=== PATIENT | female | born 1950 | race Caucasian/White ===

== ENCOUNTER 2016-12-07 12:41 | Emergency (ER) | payer OTHER ==
[2016-12-07 12:56] VITALS: RESP 18
[2016-12-07] MEDS ORDERED: CARVEDILOL 25 MG TAB PO ONE (13:47)
--- NOTE | 2016-12-07 14:27 | EDPHY ---
H & P Stated Complaint: htn/not taaking meds as ordered/is running out Time Seen by Provider: 12/07/16 13:34 HPI/ROS: CHIEF COMPLAINT: Needs medication for hypertension HISTORY OF PRESENT ILLNESS: The patient presents to the emergency department after she has ran out of medication for her high blood pressure for the past month. The patient has been on a number of agents including amlodipine, carvedilol, clonidine and hydralazine. The patient is not had any of these medications for 1 month. The patient is new to the area. The patient reportedly was seen in the emergency department several months ago for vaginal bleeding which resolved. REVIEW OF SYSTEMS: A comprehensive 10 point review of systems is otherwise negative aside from elements mentioned in the history of present illness. - Personal History Current Tetanus/Diphtheria Vaccine: Unsure - Medical/Surgical History Hx Asthma: No Hx Chronic Respiratory Disease: No Hx Diabetes: Yes Hx Cardiac Disease: No Hx Renal Disease: No Hx Cirrhosis: No Hx Alcoholism: No Hx HIV/AIDS: No Hx Splenectomy or Spleen Trauma: No Other PMH: CVA/HTN/DIABETES/ENDOCARDITIS/DUODENAL ULCERS - Social History Smoking Status: Never smoked Constitutional: Initial Vital Signs Temperature (C) 36.3 C 12/07/16 12:54 Heart Rate 94 12/07/16 12:54 Respiratory Rate 18 12/07/16 12:54 Blood Pressure 211/140 H 12/07/16 12:54 O2 Sat (%) 95 12/07/16 12:54 O2 Delivery Mode Room Air Allergies/Adverse Reactions: gabapentin Allergy (Verified 12/07/16 12:53) lanolin Allergy (Verified 12/07/16 12:53) oxycodone HCl [From OxyContin] Allergy (Verified 12/07/16 12:53) Home Medications: Medication Instructions Recorded AMITRIPTYLINE HCL 09/23/16 Amlodipine Besylate 09/23/16 Atorvastatin Calcium 09/23/16 Carvedilol 09/23/16 Clonidine 09/23/16 FERROUS FUMARATE 09/23/16 Furosemide 09/23/16 Levothyroxine 09/23/16 Metformin HCl 09/23/16 Oxybutynin Chloride 09/23/16 Potassium 09/23/16 Protonix 09/23/16 buPROPion 09/23/16 hydrALAZINE 09/23/16 Amlodipine Besylate 10 mg PO DAILY #30 tablet 12/07/16 Carvedilol [Coreg (*)] 25 mg PO BIDMEAL #60 tab 12/07/16 Furosemide [Lasix 20 MG (*)] 20 mg PO DAILY #30 tab 12/07/16 Hydralazine HCl 100 mg PO DAILY #30 tablet 12/07/16 Levothyroxine [Synthroid 100 mcg 100 mcg PO DAILY #30 tab 12/07/16 (*)] Metformin HCl [Metformin 1000 mg] 1,000 mg PO BID #60 tablet 12/07/16 Medical Decision Making ED Course/Re-evaluation: The patient presents to the ED with a markedly elevated blood pressure without any clinical evidence of end-organ dysfunction. She specifically has a normal neurologic exam, no complaints of chest pain or shortness of breath. Patient's blood pressure was 250/130 upon arrival. The patient did receive an oral dose of amlodipine and carvedilol. Patient was re-evaluated by myself at 3:15 p.m.. Blood pressure is currently 183/[address] Maurice Alvarez who is on-call for outpatient unassigned medicine. I reviewed the patient's case. He is happy to see her in the office tomorrow for a blood pressure recheck in to review all of her outpatient medications. The patient has been provided prescriptions for amlodipine, carvedilol, metformin, hydralazine, lasix and levothyroxine. Patient is comfortable being discharged home at this stage of the game. She will return to the ED for any chest pain, shortness of breath, numbness, weakness or other acute complaints. Differential Diagnosis: Differential diagnosis considered includes hypertensive emergency, hypertensive urgency, metabolic abnormality, acute renal failure, medication side effect, stroke, TIA - Data Points Laboratory Results: Laboratory Results 12/07/16 14:35 12/07/16 14:35 12/07/16 12/07/16 14:35 14:35 WBC 8.27 10^3/uL 10^3/uL (3.80-9.50) RBC 4.71 10^6/uL 10^6/uL (4.18-5.33) Hgb 13.9 g/dL g/dL (12.6-16.3) Hct 40.7 % % (38.0-47.0) MCV 86.4 fL fL (81.5-99.8) MCH 29.5 pg pg (27.9-34.1) MCHC 34.2 g/dL g/dL (32.4-36.7) RDW 13.0 % % (11.5-15.2) Plt Count 305 10^3/uL 10^3/uL (150-400) MPV 9.9 fL fL (8.7-11.7) Neut % (Auto) 60.6 % % (39.3-74.2) Lymph % (Auto) 30.2 % % (15.0-45.0) [place] % (Auto) 6.2 % % (4.5-13.0) Eos % (Auto) 2.2 % % (0.6-7.6) Baso % (Auto) 0.6 % % (0.3-1.7) Nucleat RBC Rel Count 0.0 % % (0.0-0.2) Absolute Neuts (auto) 5.01 10^3/uL 10^3/uL (1.70-6.50) Absolute Lymphs (auto) 2.50 10^3/uL 10^3/uL (1.00-3.00) Absolute Monos (auto) 0.51 10^3/uL 10^3/uL (0.30-0.80) Absolute Eos (auto) 0.18 10^3/uL 10^3/uL (0.03-0.40) Absolute Basos (auto) 0.05 10^3/uL 10^3/uL (0.02-0.10) Absolute Nucleated RBC 0.00 10^3/uL 10^3/uL (0-0.01) Immature Gran % 0.2 % % (0.0-1.1) Immature Gran # 0.02 10^3/uL 10^3/uL (0.00-0.10) Sodium 142 mEq/L mEq/L (134-144) Potassium 3.6 mEq/L mEq/L (3.5-5.2) Chloride 109 mEq/L mEq/L (97-110) Carbon Dioxide 23 mEq/l mEq/l (22-31) Anion Gap 10 mEq/L mEq/L (8-16) BUN 24 mg/dL H mg/dL (7-23) Creatinine 1.6 mg/dL H mg/dL (0.6-1.0) Estimated GFR 32 Glucose 101 mg/dL H mg/dL (70-100) Calcium 9.7 mg/dL mg/dL (8.5-10.4) Medications Given: Discontinued Medications Amlodipine Besylate (Norvasc) 10 mg PO EDNOW ONE Stop: 12/07/16 13:48 Last Admin: 12/07/16 14:15 Dose: 10 mg Carvedilol (Coreg) 25 mg PO EDNOW ONE Stop: 12/07/16 13:48 Last Admin: 12/07/16 14:15 Dose: 25 mg Departure - Departure Disposition: Home, Routine, Self-Care Clinical Impression: Hypertension Condition: Good Instructions: Hypertension (ED) Additional Instructions: 1. Please take medications as prescribed. 2. Please follow up with Dr. Maurice Alvarez tomorrow for a new patient appointment. Please contact his office today to schedule that appointment. Referrals: Maurice Alvarez MD [Medical Doctor] - As per Instructions Prescriptions: Amlodipine Besylate 10 mg PO DAILY #30 tablet Carvedilol [Coreg (*)] 25 mg PO BIDMEAL #60 tab Furosemide [Lasix 20 MG (*)] 20 mg PO DAILY #30 tab Hydralazine HCl 100 mg PO DAILY #30 tablet Levothyroxine [Synthroid 100 mcg (*)] 100 mcg PO DAILY #30 tab Metformin HCl [Metformin 1000 mg] 1,000 mg PO BID #60 tablet
[2016-12-07 14:50] LABS: % IMMATURE GRANULYOCYTES 0.2 % (0.0-1.1); ABSOLUTE IMMATURE GRANULOCYTES 0.02 10^3/uL (0.00-0.10); ADD DIFF? NO; ADD MORPH? NO; ADD SCAN? NO; ATYPICAL LYMPHOCYTE FLAG 0 (0-99); FRAGMENT RBC FLAG 0 (0-99); HEMATOCRIT 40.7 % (38.0-47.0); HEMOGLOBIN 13.9 g/dL (12.6-16.3); LEFT SHIFT FLG 0 (0-99); LIPEMIA HEMOLYSIS FLAG 90 (0-99); MEAN CELL HEMOGLOBIN 29.5 pg (27.9-34.1); MEAN CELL HEMOGLOBIN CONCENTR. 34.2 g/dL (32.4-36.7); MEAN CELL VOLUME 86.4 fL (81.5-99.8); MEAN PLATELET VOLUME 9.9 fL (8.7-11.7); PLATELET CLUMPS FLAG 0 (0-99); PLATELET COUNT 305 10^3/uL (150-400); RED BLOOD CELL COUNT 4.71 10^6/uL (4.18-5.33)
[2016-12-07 15:05] LABS: ANION GAP 10 mEq/L (8-16); CALCIUM 9.7 mg/dL (8.5-10.4); CARBON DIOXIDE 23 mEq/l (22-31); CHLORIDE 109 mEq/L (97-110); CREATININE 1.6 mg/dL (0.6-1.0); GLOMERULAR FILTRATION RATE 32; GLUCOSE 101 mg/dL (70-100); POTASSIUM 3.6 mEq/L (3.5-5.2); SODIUM 142 mEq/L (134-144)
[2016-12-07 15:59] VITALS: BP 176/117; PULSE 78; TEMP 97.5; O2SAT 95
== END 2016-12-07 16:03 | disposition home or self-care (01) ==
DX: I10 Essential (primary) hypertension (principal); E11.9 Type 2 diabetes mellitus without complications

== ENCOUNTER 2016-12-27 13:35 | Emergency (ER) | payer OTHER ==
[2016-12-27 13:40] VITALS: BP 181/91; PULSE 66; RESP 18; TEMP 98.1; O2SAT 94
--- NOTE | 2016-12-27 14:22 | EDPHY ---
H & P Stated Complaint: L 1st toe nail falling off, bleeding, no trauma Time Seen by Provider: 12/27/16 14:17 HPI/ROS: CHIEF COMPLAINT: Toenail falling off HISTORY OF PRESENT ILLNESS: Patient is a 66-year-old diabetic female who comes to the emergency department because she knows that her left great toenail was falling off. She knows this morning. It is avulsed from the nail bed but is still in the base. There is a small amount of dry blood. No visible infection. No significant pain. REVIEW OF SYSTEMS: Constitutional: denies: chills, fever, recent illness, recent injury EENTM: denies: blurred vision, double vision, nose congestion Respiratory: denies: cough, shortness of breath Cardiac: denies: chest pain, irregular heart rate, lightheadedness, palpitations Gastrointestinal/Abdominal: denies: abdominal pain, diarrhea, nausea, vomiting, blood streaked stools Genitourinary: denies: dysuria, frequency, hematuria, pain Musculoskeletal: denies: joint pain, muscle pain Skin: denies: lesions, rash, jaundice, bruising Neurological: denies: headache, numbness, paresthesia, tingling, dizziness, weakness Hematologic/Lymphatic: denies: blood clots, easy bleeding, easy bruising Immunologic/allergic: denies: HIV/AIDS, transplant EXAM: GENERAL: Well-appearing, well-nourished and in no acute distress. HEAD: Atraumatic, normocephalic. EYES: Pupils equal round and reactive to light, extraocular movements intact, sclera anicteric, conjunctiva are normal. ENT: TMs normal, nares patent, oropharynx clear without exudates. Moist mucous membranes. NECK: Normal range of motion, supple without lymphadenopathy or JVD. LUNGS: Breath sounds clear to auscultation bilaterally and equal. No wheezes rales or rhonchi. HEART: Regular rate and rhythm without murmurs, rubs or gallops. ABDOMEN: Soft, nontender, normoactive bowel sounds. No guarding, no rebound. No masses appreciated. BACK: No CVA tenderness, no spinal tenderness, step-offs or deformities EXTREMITIES: Left great toenail partially avulsed. Loose from the nail bed but still intact at the base. Normal range of motion, no pitting or edema. No clubbing or cyanosis. NEUROLOGICAL: Cranial nerves II through XII grossly intact. Normal speech, normal gait. 5/5 strength, normal movement in all extremities, normal sensation PSYCH: Normal mood, normal affect. SKIN: Warm, dry, normal turgor, no visible rashes or lesions. Source: Patient Exam Limitations: No limitations - Personal History Current Tetanus/Diphtheria Vaccine: Yes Current Tetanus Diphtheria and Acellular Pertussis (TDAP): Yes - Medical/Surgical History Hx Asthma: No Hx Chronic Respiratory Disease: No Hx Diabetes: Yes Hx Cardiac Disease: No Hx Renal Disease: No Hx Cirrhosis: No Hx Alcoholism: No Hx HIV/AIDS: No Hx Splenectomy or Spleen Trauma: No Other PMH: CVA/HTN/NIDDM/ENDOCARDITIS/DUODENAL ULCERS/hx kidney failure/colon ca - Family History Significant Family History: Hypertension - Social History Smoking Status: Never smoked Alcohol Use: Sober Drug Use: None Constitutional: Initial Vital Signs Temperature (C) 36.7 C 12/27/16 13:37 Heart Rate 66 12/27/16 13:37 Respiratory Rate 18 12/27/16 13:37 Blood Pressure 181/91 H 12/27/16 13:37 O2 Sat (%) 94 12/27/16 13:37 O2 Delivery Mode Room Air Allergies/Adverse Reactions: gabapentin Allergy (Verified 12/07/16 12:53) lanolin Allergy (Verified 12/07/16 12:53) oxycodone HCl [From OxyContin] Allergy (Verified 12/07/16 12:53) Home Medications: Medication Instructions Recorded AMITRIPTYLINE HCL 09/23/16 Amlodipine Besylate 09/23/16 Atorvastatin Calcium 09/23/16 Carvedilol 09/23/16 Clonidine 09/23/16 FERROUS FUMARATE 09/23/16 Furosemide 09/23/16 Levothyroxine 09/23/16 Metformin HCl 09/23/16 Oxybutynin Chloride 09/23/16 Potassium 09/23/16 Protonix 09/23/16 buPROPion 09/23/16 hydrALAZINE 09/23/16 Amlodipine Besylate 10 mg PO DAILY #30 tablet 12/07/16 Carvedilol [Coreg (*)] 25 mg PO BIDMEAL #60 tab 12/07/16 Furosemide [Lasix 20 MG (*)] 20 mg PO DAILY #30 tab 12/07/16 Hydralazine HCl 100 mg PO DAILY #30 tablet 12/07/16 Levothyroxine [Synthroid 100 mcg 100 mcg PO DAILY #30 tab 12/07/16 (*)] Metformin HCl [Metformin 1000 mg] 1,000 mg PO BID #60 tablet 12/07/16 Medical Decision Making ED Course/Re-evaluation: Patient has partially avulsed toenail was wrapped. No evidence of fracture or laceration. No evidence of infection. No evidence of foreign body. I advised her that it would gradually fall off over the next few weeks and then regenerate. She will follow up with a nursing associate as discussed. Differential Diagnosis: Partial list of the Differential diagnosis considered include but were not limited to; toenail avulsion, infection, crush injury and although unlikely based on the history and physical exam, I also considered laceration, foreign body. I discussed these differential diagnoses and the plan with the patient as well as the usual and expected course. The patient understands that the diagnosis is provisional and that in medicine we are not always correct and that further workup is often warranted. Usual and customary warnings were given. All of the patient's questions were answered. The patient was instructed to return to the emergency department should the symptoms at all worsen or return, otherwise to followup with the physician as we discussed. Departure - Departure Disposition: Home, Routine, Self-Care Clinical Impression: Avulsed toenail Qualifiers: Encounter type: initial encounter Qualified Code(s): S91.209A - Unspecified open wound of unspecified toe(s) with damage to nail, initial encounter Condition: Fair Instructions: Nail Avulsion (ED) Referrals: Maurice Alvarez MD [Primary Care Provider] - As per Instructions Ricardo Hassan DPM [Doctor of Podiatric Medicine] - As per Instructions
== END 2016-12-27 14:33 | disposition home or self-care (01) ==
DX: S91.202A Unspecified open wound of left great toe with damage to nail, initial encounter (principal); E11.9 Type 2 diabetes mellitus without complications; I10 Essential (primary) hypertension; Z86.73 Personal history of transient ischemic attack (TIA), and cerebral infarction without residual deficits; Z85.038 Personal history of other malignant neoplasm of large intestine; Z79.4 Long term (current) use of insulin; X58.XXXA Exposure to other specified factors, initial encounter